=== PATIENT | female | born 1950 | race African-American/Black ===

== ENCOUNTER 2018-07-22 09:09 | Emergency (ER) | payer MEDICARE, MEDICAID ==
[~2018-07-22] VITALS: Ht 157.5 cm; Wt 51.0 kg
[2018-07-22] MEDS ORDERED: LEVETIRACETAM 500MG TABLET PO ONE (10:15)
[2018-07-22 12:10] LABS: BASOPHILS % 0.2 % (0.0-2.0); EOSINOPHILS % 0.4 % (0.0-5.0); HEMATOCRIT. 22.1 % (36.0-48.0); HEMOGLOBIN. 7.3 g/dL (12.0-16.0); MEAN CORPUSCULAR HEMOGLOBIN 31.6 pg (28.0-32.0); MEAN CORPUSCULAR VOLUME 95.2 fL (81.0-99.0); MONOCYTES % 6.7 % (2.0-8.0); NEUTROPHILS % 61.7 % (40.0-76.0); PLATELET 242 x1000/uL (130-400); RED BLOOD CELL COUNT 2.32 mill/uL (4.2-5.4); RED CELL DISTRIBUTION WIDTH 12.5 % (11.6-14.6)
[2018-07-22 12:17] LABS: CHLORIDE 106 mEq/L (98-107)
[2018-07-22 12:32] LABS: CARBAMAZEPINE < 0.5 ug/mL (4-12); PHENOBARBITAL < 2.1 ug/mL (15.0-40.0); VALPROIC ACID < 3.0 ug/mL (50-100)
[2018-07-22 12:41] VITALS: BP 113/62
== END 2018-07-22 14:00 | disposition home or self-care (01) ==
LOC: ER 13:12
DX: G40.909 Epilepsy, unspecified, not intractable, without status epilepticus (principal); D64.9 Anemia, unspecified; R03.0 Elevated blood-pressure reading, without diagnosis of hypertension
CPT/HCPCS: 36415; 70450; 80053; 80156; 80165; 80184; 80185; 83880; 84443; 84484; 85025; 99285